=== PATIENT | male | born 1950 | race Caucasian/White ===

== ENCOUNTER 2018-02-22 09:47 | Emergency (ER) | payer BC, MEDICARE ==
[2018-02-22 10:52] LABS: BASO % 1.5 % (0-6); GRAN % 65.5 % (47-80); HEMATOCRIT 49.3 % (42.0-52.0); HEMOGLOBIN 16.6 gm/dl (14.0-18.0); MEAN CORPUSCULAR HEMOGLOBIN 30.6 pg (27-33); MEAN CORPUSCULAR HGB CONC 33.7 g/dl (32-36); MEAN PLATELET VOLUME 10.1 fl (7.4-10.4); PLATELET COUNT 864 K/uL (130-400); RED BLOOD COUNT 5.42 M/uL (4.40-5.70); RED CELL DISTRIBUTION WIDTH 15.9 % (11.5-14.5); WHITE BLOOD COUNT W/O DIFF 9.3 K/uL (4.2-12.2)
[2018-02-22 12:01] LABS: ALB/GLOB RATIO 1.6 (1.1-1.8); ALBUMIN 4.2 g/dL (4.0-5.0); ALKALINE PHOSPHATASE 76 U/L (40-129); ALT/SGPT 13 U/L (<41); AST/SGOT 20 U/L (10.0-50.0); BLOOD UREA NITROGEN 13 mg/dL (8-23); CKMB 1.7 ng/mL (<6.73); EST GLOMERULAR FILTRATION RATE > 60 mL/min; GLUCOSE,RANDOM 89 mg/dL (74-109); TOTAL PROTEIN 6.9 g/dL (6.6-8.7)
[2018-02-22] MEDS ORDERED: KETOROLAC 30 MG/ML VIAL IVP ONE (12:03)
[2018-02-22 12:19] LABS: CREATINE PHOSPHOKINASE 76 U/L (39-308)
--- NOTE | 2018-02-22 13:08 | Emergency Department Record ---
History of Present Illness - General Chief Complaint: Chest Pain Stated Complaint: right sided CP Time Seen by Provider: 02/22/18 10:25 Source: Patient Mode of Arrival: Ambulatory Limitations: No limitations - History of Present Illness Initial Comments: pt has had r sided cp for 3 days. he does not remember any injury. movement makes it worse Complaint: Chest pain Onset/Timin -: Days(s) Onset: Other Pain Location: Right chest Pain Radiation: None Quality: Tightness, Other Consistency: Constant Improves With: Nothing Worsens With: Exertion, Inspiration Context: Other Treatments Prior to Arrival: None - Related Data Home Medications Medication Instructions Recorded Confirmed Last Taken Saw/Vit E/Sod Lou/Lyc/Beta/Pyg 1 each PO DAILY 02/22/18 02/22/18 Unknown [Prostate Health Caplet] Previous Rx's Medication Instructions Recorded Atenolol [Tenormin] 25 mg PO DAILY #20 tab 02/22/18 Hydrocodone/Acetaminophen [[place] 1 each PO Q6HR #7 tablet 02/22/18 5-325 Tablet] Ibuprofen [Motrin 600Mg] 600 mg PO Q6H #20 tablet 02/22/18 Allergies Allergy/AdvReac Type Severity Reaction Status Date / Time codeine AdvReac NAUSEA Verified 09/21/14 19:50 Travel Screening - Travel/Exposure Within Last 30 Days Have you traveled within the last 30 days?: No Review of Systems Reviewed: No additional complaints except as noted below Constitutional: Reports: As per HPI. Denies: Chills, Fever, Malaise, Night sweats, Weakness, Weight change Eyes: Reports: As per HPI. Denies: Eye discharge, Eye pain, Photophobia, Vision change ENT: Reports: As per HPI. Denies: Congestion, Dental pain, Ear pain, Epistaxis , Hearing loss, Throat pain Respiratory: Reports: As per HPI. Denies: Cough, Dyspnea, Hemoptysis, Stridor, Wheezes Cardiovascular: Reports: As per HPI. Denies: Arrhythmia, Chest pain, Dyspnea on exertion, Edema, Murmurs, Orthopnea, Palpitations, Paroxysmal nocturnal dyspnea, Rheumatic Fever, Syncope Endocrine: Reports: As per HPI. Denies: Fatigue, Heat or cold intolerance, Polydipsia, Polyuria Gastrointestinal: Reports: As per HPI. Denies: Abdominal pain, Constipation, Diarrhea, Hematemesis, Hematochezia, Melena, Nausea, Vomiting Genitourinary: Reports: As per HPI. Denies: Dysuria, Frequency, Hematuria, Incontinence, Retention, Testicular pain, Testicular mass, Urgency Musculoskeletal: Reports: As per HPI. Denies: Arthralgia, Back pain, Gout, Joint swelling, Myalgia, Neck pain Skin: Reports: As per HPI. Denies: Bruising, Change in color, Change in hair/ nails, Lesions, Pruritus, Rash Neurological: Reports: As per HPI. Denies: Abnormal gait, Confusion, Headache, Numbness, Paresthesias, Seizure, Tingling, Tremors, Vertigo, Weakness Psychiatric: Reports: As per HPI. Denies: Anxiety, Auditory hallucinations, Depression, Homicidal thoughts, Suicidal thoughts, Visual hallucinations Hematological/Lymphatic: Reports: As per HPI. Denies: Anemia, Blood Clots, Easy bleeding, Easy bruising, Swollen glands Past Medical History - SOCIAL HISTORY Smoking Status: Heavy tobacco smoker (>10/day) Alcohol Use: Rare Drug Use: None - RESPIRATORY Hx Respiratory Disorders: No - CARDIOVASCULAR Hx Cardio Disorders: No - NEURO Hx Neuro Disorders: No - GI Hx GI Disorders: No - Hx Genitourinary Disorders: No - ENDOCRINE Hx Endocrine Disorders: No - MUSCULOSKELETAL Hx Musculoskeletal Disorders: No Comment:: multiple ortho injuries - PSYCH Hx Psych Problems: No - HEMATOLOGY/ONCOLOGY Hx Hematology/Oncology Disorders: No Family Medical History Any Significant Family History?: No Physical Exam - General General Appearance: Alert, Oriented x3, Cooperative, Mild distress - Head Head exam: Normal inspection - Eye Eye exam: Normal appearance, PERRL, EOMI Pupils: Normal accommodation - ENT ENT exam: Normal exam, Mucous membranes moist, Normal external ear exam, Normal orophraynx Ear exam: Normal external inspection. negative: External canal tenderness Nasal Exam: Normal inspection. negative: Discharge, Sinus tenderness Mouth exam: Normal external inspection, Tongue normal Teeth exam: Normal inspection. negative: Dental caries Throat exam: Normal inspection. negative: Tonsillar erythema, Tonsillar exudate - Neck Neck exam: Normal inspection, Full ROM. negative: Tenderness - Respiratory Respiratory exam: Normal lung sounds bilaterally, Chest wall tenderness. negative: Respiratory distress - Cardiovascular Cardiovascular Exam: Regular rate, Normal rhythm, Normal heart sounds - GI/Abdominal GI/Abdominal exam: Soft, Normal bowel sounds. negative: Tenderness - Rectal Rectal exam: Deferred - exam: Deferred - Extremities Extremities exam: Normal inspection, Full ROM, Normal capillary refill. negative: Tenderness - Back Back exam: Reports: Normal inspection, Full ROM. 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 ] Respiratory 20 18 Rate Blood Pressure 194/118 185/112 [Right Arm] Pulse Ox 97 96 Medical Decision Making - Lab Data Result diagrams: 02/22/18 10:03 02/22/18 10:03 Lab Results 02/22/18 02/22/18 02/22/18 Range/Units 10:03 10:03 10:03 WBC 9.3 (4.2-12.2) K/uL RBC 5.42 (4.40-5.70) M/uL Hgb 16.6 (14.0-18.0) gm/dl Hct 49.3 (42.0-52.0) % MCV 91.0 (81-97) fl MCH 30.6 (27-33) pg MCHC 33.7 (32-36) g/dl RDW 15.9 H (11.5-14.5) % Plt Count 864 H (130-400) K/uL MPV 10.1 (7.4-10.4) fl Gran % 65.5 (47-80) % Lymphocytes % 18.0 (16-45) % Monocytes % 11.0 H (0-9) % Eosinophils % 4.0 (0-6) % Basophils % 1.5 (0-6) % D-Dimer 0.89 H (0-0.59) mg/L FEU Sodium 143 (136-145) mmol/L Potassium 4.1 (3.4-4.5) mmol/L Chloride 103 (98-107) mmol/L Carbon Dioxide 28.0 (22-29) mmol/L Anion Gap 12.0 (7-16) BUN 13 (8-23) mg/dL Creatinine 1.0 (0.7-1.2) mg/dL Estimated GFR > 60 mL/min Random Glucose 89 (74-109) mg/dL Calcium 9.2 (8.8-10.2) mg/dL Total Bilirubin 0.60 (0.2-1.0) mg/dL AST 20 (10.0-50.0) U/L ALT 13 (<41) U/L Alkaline Phosphatase 76 (40-129) U/L Creatine Kinase 76 (39-308) U/L CK-MB (CK-2) 1.7 (<6.73) ng/mL Troponin T < 0.010 (0-0.010) ng/mL Total Protein 6.9 (6.6-8.7) g/dL Albumin 4.2 (4.0-5.0) g/dL Globulin 2.7 (1.4-4.8) gm/dL Albumin/Globulin Ratio 1.6 (1.1-1.8) Disposition Disposition: Discharge Clinical Impression: Chest wall pain, Thyroid nodule, Lung nodule Hypertension Qualifiers: Hypertension type: essential hypertension Qualified Code(s): I10 - Essential ( primary) hypertension Disposition: Home, Self-Care Condition: (1) Good Instructions: Chest Wall Pain (ED), Hypertension (ED), Thyroid Nodules (ED), Pulmonary Nodules (ED) Additional Instructions: follow up with family doctor. return sooner if worse. ice and moist heat. have us of thyroid. have chest ct in 6 months. take motrin with food. have blood pressure rechecked Prescriptions: Hydrocodone/Acetaminophen [[place] 5-325 Tablet] 1 each PO Q6HR #7 tablet Atenolol [Tenormin] 25 mg PO DAILY #20 tab Ibuprofen [Motrin 600Mg] 600 mg PO Q6H #20 tablet Quality - Quality Measures Quality Measures: N/A - Blood Pressure Screening Does Patient Have Any of the Following: No Blood Pressure Classification: Hypertensive Reading Systolic Measurement: 185 Diastolic Measurement: 112 Screening for High Blood Pressure: < First Hypertensive BP, F/U Documented > [ G8950] First Hypertensive Follow-up Interventions: Follow-up with rescreen GT 1 day and LT 4 weeks.
[2018-02-22] MEDS ORDERED: ATENOLOL 25 MG TABLET PO ONE (13:17)
--- NOTE | 2018-02-23 11:26 | CT ANGIOGRAM REPORT ---
DATE: 02/22/2018 at 12:19 p.m. EXAM: EMERGENCY CHEST CT ANGIOGRAM WITH CONTRAST FOR PULMONARY EMBOLUS. HISTORY: Chest pain, elevated D-dimer, possible pulmonary embolus. TECHNIQUE: CTA of the chest performed following the intravenous administration of 70 mL of Omnipaque 350 as the intravenous contrast. Postprocessing on an independent work station was performed with multiple 3D MIP series obtained. COMPARISON: None. FINDINGS: No definite pulmonary embolus identified. Ectasia of the ascending aorta measuring up to about 3.9 cm in diameter. No thoracic aortic dissection is seen. No pleural or pericardial effusion evident. Some normal-sized mediastinal nodes are seen with no definite hilar or mediastinal adenopathy evident. There is questionably an approximately 14 mm left lobe thyroid nodule. There is artifact through the left lobe of the thyroid at this level making it somewhat difficult to be certain if there is a true nodule here. Correlation with physical examination and follow-up thyroid ultrasound might be useful. Some mild paraseptal emphysema is noted. There is a small nodule in the left lower lobe on image number 92 of 127 measuring about 4.5 mm. This is radiographically indeterminate. Follow-up chest CT in six months' time is suggested to reassess. IMPRESSION: 1. NO DEFINITE PULMONARY EMBOLUS IDENTIFIED. 2. BORDERLINE ANEURYSMAL DILATATION OF THE ASCENDING AORTA MEASURING 3.9 CM IN SIZE. 3. QUESTIONABLE 1.4 CM NODULE IN THE LEFT LOBE OF THE THYROID. FOLLOW-UP THYROID ULTRASOUND MIGHT BE USEFUL. 4. INDETERMINATE 4.5 MM NODULE IN THE LEFT LOWER LOBE. FOLLOW-UP CHEST CT IN SIX MONTHS' TIME IS SUGGESTED. JOB NUMBER: [id number] MTDD
== END 2018-02-22 13:26 | disposition home or self-care (01) ==
LOC: ER 09:47
DX: R07.89 Other chest pain (principal); R91.1 Solitary pulmonary nodule; E04.1 Nontoxic single thyroid nodule; I10 Essential (primary) hypertension; F17.210 Nicotine dependence, cigarettes, uncomplicated
CPT/HCPCS: 71275; 80053; 82550; 82553; 84484; 85025; 85379; 93005; 93010; 96374; 99284; J1885